=== PATIENT | female | born 1960 | race Two or more races ===

== ENCOUNTER 2024-06-12 03:33 | Inpatient (IN) | payer MEDICAID, SELFPAY ==
[2024-06-12] VITALS (14 sets, daily range): BP systolic 143–186; BP diastolic 58–99; PULSE 71–107; RESP 14–29; TEMP 36.1–37.1; O2SAT 90–100; BMI 74.2
--- NOTE | ~2024-06-12 | CT_ITS ---
CLINICAL HISTORY: intermittent L arm numbness, L mouth drooping CT angiography head and neck with contrast. 3D Postprocessing. Comparison: None Findings: Aortic arch and cervical great vessels are patent. Intracranial arteries are patent. No aneurysm, dissection, or occlusion. No abnormal intracranial enhancement. The visualized thyroid gland is unremarkable. No cervical mass or fluid collection. Lung apices clear. No acute fracture. IMPRESSION: Patent head and neck CTA. This document has been electronically signed by: Orestes Rob MD on 06/12/2024 05:58:57
--- NOTE | 2024-06-12 03:54 | ECG_ITS ---
Test Reason : STROKE Blood Pressure : */* mmHG Vent. Rate : 93 BPM Atrial Rate : 93 BPM P-R Int : 142 ms QRS Dur : 80 ms QT Int : 324 ms P-R-T Axes : 58 54 46 degrees QTcB Int : 402 ms Normal sinus rhythm Possible Left atrial enlargement Borderline ECG No previous ECGs available Referred By: Lesley Conner Electronically Signed By: SARA ARCOS MD
--- NOTE | 2024-06-12 03:55 | ED_ITS ---
HPI - Neuro Symptoms/Deficit General Chief Complaint: Weakness Stated Complaint: stroke Time Seen by Provider: 06/12/24 03:36 Source: patient, family and EMS Mode of arrival: EMS Limitations: other (Poor historian) History of Present Illness ED Provider: Dr. Lesley Conner HPI Narrative: Patient comes to the emergency room complaining of left arm numbness and tingling. Patient states she noticed that she had numbness and tingling and a bit of weakness on the left arm approximately 11 hours ago. Patient states it lasted for about 30 minutes and then it self-resolved. Again, a proximally 6 hours ago at 22:00, patient noted that she had numbness tingling in the left arm. Patient states it is not so much weakness it is just the uncomfortable sensation that she can not shake off. Patient states it has been going on 6 hours now with the same symptoms. According to the patient, approximately 2 hours ago she called her daughter and explain to her that she was having numbness tingling on the left side of her arm. Patient's daughter went to see her mother who noted that patient had mild left-sided drooping. Patient did not notice it. By the time they arrived to the hospital, patient no longer having mouth drooping, has normal speech, complaining of ongoing numbness tingling of the left arm. Related Data Allergies Allergy/AdvReac Type Severity Reaction Status Date / Time No Known Allergies Allergy Verified 06/12/24 03:57 Review of Systems 2 Review of Systems: Constitutional : No Weight loss, No Fever, No Chills, No Night Sweats, No Fatigue, No Malaise ENT/Mouth : No Hearing loss, No Ear Pain, No Nasal Congestion, No Sinus Pain, No Hoarseness, No sore throat, No Rhinorrhea, No Swallowing Difficulty Eyes: No Eye Pain, No Swelling, No Redness, No Foreign Body, No Discharge, No Vision Changes Cardiovascular : No Chest Pain, No SOB, No Dyspnea on Exertion, No Orthopnea, No Edema, No Palpitations Respiratory : No Cough, No Sputum, No Wheezing, No Smoke Exposure, No Dyspnea Gastrointestinal : No Nausea, No Vomiting, No Diarrhea, No Constipation, No abdominal Pain, No Hematochezia, No Melena Genitourinary : no irregular bleeding, No Dysuria, No Urinary Frequency, No Hematuria, No Urinary Incontinence, No Urgency, No Flank Pain, No Urinary Flow Changes, No Hesitancy Musculoskeletal : No joint pain, No Myalgias, No Joint Swelling Skin : No Skin Lesions, No rash Neuro : Complaining of intermittent mild weakness of the left arm, ongoing paresthesias of the left arm for at least 6 hours, resolved left-sided mouth droop Psych : No Anxiety/Panic, No Depression, No SI/HI/AH/VH, No Social Issues, Heme/Lymph: No Bruising, No Bleeding,No Lymphadenopathy Endocrine : No Polyuria, No Polydipsia, No Temperature Intolerance [facility] Past Medical History Medical History (Updated 06/12/24 @ 06:55 by Lesley Conner MD) Diabetes Hyperlipidemia Hypertension Social History Social History Smoked in Last 30 Days: No Use of substances other than those prescribed or required for medical reasons: No Advance Directives: No Advance Directives Information Provided: Yes Do you have a plan to hurt others: No Plan Patient : No Physical Exam 2 Vital Signs: Vital Signs: Last Vital Signs Temp 98.8 F 06/12/24 06:23 Pulse 104 H 06/12/24 06:23 Resp 29 H 06/12/24 06:23 BP 169/74 H 06/12/24 06:23 Pulse Ox 97 06/12/24 06:23 O2 Del Method Nasal Cannula 06/12/24 06:23 O2 Flow Rate 2 06/12/24 06:23 Oxygen Flow Rate 2 06/12/24 03:38 BMI result Body Mass Index 74.2 Const: Other: Appearance: Alert. Oriented X3. No acute distress. Eyes: Pupils equal, round and reactive to light. ENT: Pharynx normal. Neck: Normal inspection. Neck supple. No lymph nodes noted. No crepitus CVS: Normal heart rate and rhythm. Pulses normal. Normal S1 and S2 Respiratory: No respiratory distress. Breath sounds normal. No Wheezing. No rales Abdomen: Soft and nontender. No rigidity. No distention. Skin: Skin warm and dry. Normal skin color. Normal skin turgor. Extremities: No lower extremity edema. No Lacerations. No Rash Neuro: Oriented X 3. No motor deficit. No sensory deficit. Moving all extremities. No slurred speech. CN 2 through 12 grossly intact Psych: calm, cooperative, very anxious Course Course Course Narrative: Patient receiving Ativan, full-dose aspirin All of patient's labs and imaging pending. On arrival, patient's NIH score 0. Patient is still feeling paresthesias in the left arm. Patient is outside of the window of treatment is TNK would be necessary. However, patient's NIH score is 0. CTA of the head and neck pending Medications Administered Discontinued Medications Generic Name Dose Route Start Last Admin Trade Name Lisa PRN Reason Stop Dose Admin Aspirin 325 mg 06/12/24 03:53 06/12/24 04:07 Aspirin Enteric Coated 325 Mg Tablet. PO 06/12/24 03:54 325 mg ONCE ONE Administration Iohexol 70 ml 06/12/24 05:01 06/12/24 05:01 Iohexol 350 Mg/Ml 100 Ml Infus..Btl IV 06/12/24 05:02 70 ml ONCE ONE Administration Lorazepam 2 mg 06/12/24 03:53 06/12/24 04:07 Lorazepam 2 Mg/Ml Vial IVPUSH 06/12/24 03:54 2 mg ONCE ONE Administration Medical Decision Making Medical Decision Making MDM Narrative: My interpretation of labs: Normal hematology, normal chemistry, troponin negative CTA: Patent head and neck CTA Patient to be admitted by the medicine team Patient's NIH score remains at 0 CTA of the neck does not show any acute abnormality. I discussed the patient with Dr. Morales from the Medicine team, patient being admitted. Differential Diagnosis Differential Diagnoses: The differential diagnosis associated with the presentation includes (TIA, CVA, paresthesias) Admission/Observation Consideration of admission/observation: Escalation of care including admission/observation considered Consult Healthcare Provider Management of the patient was discussed with: Hospitalist Lab Data [facility] Lab Attestation statement: I reviewed the patient's lab results. 06/12/24 04:11 06/12/24 04:11 Labs: Lab Results 06/12/24 06/12/24 Range/Units 03:49 04:11 WBC 10.8 (4.8-10.8) X10*3/uL RBC 4.80 (4.20-5.50) X10*6/uL Hgb 13.8 (12.0-16.0) g/dl Hct 42.8 (37.0-47.0) % MCV 89.2 (80.0-98.0) fL MCH 28.8 (27.0-33.0) pg MCHC 32.2 (31.0-35.0) g/dl RDW 15.7 (11.0-16.0) % Plt Count 248 (160-400) X10*3/uL MPV 10.7 (9.4-12.3) fL Immature Gran % (Auto) 0.4 (0.0-0.4) % Neut % (Auto) 91.4 H (45-73) % Lymph % (Auto) 3.1 L (20-40) % [place] % (Auto) 4.5 (2-11) % Eos % (Auto) 0.5 (0-4) % Baso % (Auto) 0.1 (0-2) % Lymph # (Auto) 0.3 L (1.2-4.9) X10*3/uL [place] # (Auto) 0.5 (0.1-1.2) X10*3/uL Eos # (Auto) 0.1 (0.0-0.4) X10*3/uL Baso # (Auto) 0.0 (0.0-0.2) X10*3/uL Abs Immat Gran (auto) 0.04 H (0.00-0.03) X10*3/uL Absolute Neuts (auto) 9.9 H (2.0-8.3) x10*3/uL Absolute Nucleated RBC 0.000 (0.0-0.012) X10*3/uL Nucleated RBC % (auto) 0.0 (0.0-0.2) /100WBC Smear Tech's Comments VERIFIED PT 12.2 (10.9-12.4) SEC Whole Blood PT 12.7 (11.1-13.5) sec INR 1.0 (0.9-1.1) Whole Blood INR 1.1 (0.9-1.1) Sodium 139 (135-145) mmol/L Potassium 4.9 (3.3-5.1) mmol/L Chloride 101 (96-108) mmol/L Carbon Dioxide 26 (22-29) mmol/L Anion Gap 17 (12-20) BUN 41 H (9-16) mg/dL Creatinine 1.38 (0.5-1.4) mg/dL Estim Creat Clear Calc 71.7 Estimated GFR 39 POC Glucose 166 H (60-115) mg/dL Random Glucose 171 H (60-115) mg/dL Calcium 9.5 (8.4-10.2) mg/dL Magnesium 1.8 (1.6-2.6) mg/dL Total Bilirubin 0.7 (0.0-1.0) mg/dL Direct Bilirubin 0.3 (0.0-0.5) mg/dL AST 22 (5-31) U/L ALT 15 (0-31) U/L Alkaline Phosphatase 70 (39-117) U/L Troponin I High Sens < 2.7 (<3.5-17.0) ng/L Total Protein 7.7 (6.5-8.0) g/dL Albumin 3.7 (3.5-5.0) g/dL Independent Interpretation I performed an independent interpretation of an: CT Scan Radiology Impression Discussion of test interpretation with radiology: I have reviewed the radiologist's reading. Radiologist Impression: CLINICAL HISTORY: intermittent L arm numbness, L mouth drooping CT angiography head and neck with contrast. 3D Postprocessing. Comparison: None Findings: Aortic arch and cervical great vessels are patent. Intracranial arteries are patent. No aneurysm, dissection, or occlusion. No abnormal intracranial enhancement. The visualized thyroid gland is unremarkable. No cervical mass or fluid collection. Lung apices clear. No acute fracture. IMPRESSION: Patent head and neck CTA. Independent Historian Clinical information obtained from an independent historian. History obtained from or confirmed by: Other (Patient's daughter) NIH Stroke Scale Internal: Initial- Upon Arrival Level of Consciousness: Alert Level of Consciousness Questions: Answers both questions correctly Level of Consciousness Commands: Performs both tasks correctly Best Gaze: Normal Visual: No visual loss Facial Palsy: Normal Motor Arm (Right): No drift Motor Arm (Left): No drift Motor Leg (Right): No drift Motor Leg (Left): No drift Limb Ataxia: Absent Sensory: Normal Best Language: No aphasia Dysarthia: Normal Extinction and Inattention: No abnormality Score: 0 Critical Care Time Critical Care Time Critical Care Time: Yes Total Critical Care Time: 60 Attestation: I have personally provided critical care time. Time includes review of lab data, radiology results, discussion with consultants, and monitoring for potential decompensation. Intervention performed as documented. Discharge Plan Discharge Clinical Impression: Brain TIA Patient Disposition: Admitted As Inpatient Print Language: Citizen [place]
[2024-06-12] MEDS: Aspirin Enteric Coated 325 MG TABLET.DR PO (04:07)
[2024-06-12] MEDS: LORazepam 2 MG/ML VIAL IVPUSH (04:07)
[2024-06-12 04:16] LABS: Basophils Percent Auto 0.1 % (0-2); Eosinophils Absolute Auto 0.1 X10*3/uL (0.0-0.4); Eosinophils Percent Auto 0.5 % (0-4); Hematocrit 42.8 % (37.0-47.0); Hemoglobin 13.8 g/dl (12.0-16.0); Imm Gran Abs Auto 0.04 X10*3/uL (0.00-0.03); Imm Gran Pct Auto 0.4 % (0.0-0.4); Lymphocytes Absolute Auto 0.3 X10*3/uL (1.2-4.9); Lymphocytes Percent Auto 3.1 % (20-40); MANUAL DIFF FLAG SCAN; Mean Corpuscular HGB Conc 32.2 g/dl (31.0-35.0); Mean Corpuscular Hemoglobin 28.8 pg (27.0-33.0); Mean Corpuscular Volume 89.2 fL (80.0-98.0); Mean Platelet Volume 10.7 fL (9.4-12.3); Monocytes Absolute Auto 0.5 X10*3/uL (0.1-1.2); Monocytes Percent Auto 4.5 % (2-11); Neutrophils Absolute Auto 9.9 x10*3/uL (2.0-8.3); Neutrophils Percent Auto 91.4 % (45-73); Platelet Count 248 X10*3/uL (160-400); Red Cell Distribution Width 15.7 % (11.0-16.0); SCAN SMEAR FLAG 1; White Blood Count 10.8 X10*3/uL (4.8-10.8)
[2024-06-12 04:18] LABS: Prothrombin Time Whole Bld POC 12.7 sec (11.1-13.5); ~PT, ~INR - Anti Coag Clinic 1.1 (0.9-1.1)
[2024-06-12 04:19] LABS: Glucose, Whole Blood 166 mg/dL (60-115)
[2024-06-12 04:21] LABS: Prothrombin Time 12.2 SEC (10.9-12.4)
[2024-06-12 04:34] LABS: Alanine Aminotransferase 15 U/L (0-31); Albumin Level 3.7 g/dL (3.5-5.0); Alkaline Phosphatase 70 U/L (39-117); Anion Gap 17 (12-20); Aspartate Amino Transferase 22 U/L (5-31); Bilirubin Direct 0.3 mg/dL (0.0-0.5); Bilirubin Total 0.7 mg/dL (0.0-1.0); Blood Urea Nitrogen 41 mg/dL (9-16); Calcium 9.5 mg/dL (8.4-10.2); Carbon Dioxide 26 mmol/L (22-29); Chloride 101 mmol/L (96-108); Creatinine Clr Calc Pharmacy 71.7; Estimated Glomerular Filt Rate 39; Glucose Random 171 mg/dL (60-115); Magnesium 1.8 mg/dL (1.6-2.6); Potassium 4.9 mmol/L (3.3-5.1); Sodium 139 mmol/L (135-145); Total Protein 7.7 g/dL (6.5-8.0)
[2024-06-12 04:39] LABS: Troponin-I High Sensitivity < 2.7 ng/L (<3.5-17.0)
[2024-06-12 04:50] LABS: SLIDE REVIEW VERIFIED
[2024-06-12] MEDS: iohexoL 350 MG/ML 100 ML INFUS..BTL 70 ML IV (05:01)
--- NOTE | 2024-06-12 07:05 | PC.NURSE ---
2:1 assist to get out of bed. pt unable to ambulate independently or w/ device d/t increased weakness. wheelchair utilized. pt placed on 2L via NC (baseline) during transport to the restroom. pt then had 1 episode of nonbloody watery diarrhea. pt then assisted back into bed. pt turned/repositioned to comfort. transport services messaged so pt can be transitioned into bariatric bed to promote comfort. will transition pt when able. otherwise pt resting in no apparent distress. neuros intact. vss and up to date aside from being sinus tachycardic on the monitor. no sob/wob noted. family bedside for support. respirations even/unlabored. plan of care ongoing. call cassidy placed within reach.
--- NOTE | 2024-06-12 07:29 | PC.NURSE ---
MRI form filled out/faxed/placed in pt's chart.
--- NOTE | 2024-06-12 08:08 | PC.NURSE ---
pt transitioned to bariatric bed to promote comfort. pt turned/repositioned to comfort. purewick now in place. pt requesting CPAP machine d/t hx of CORNELIA/wanting to fall asleep. RT notified/aware. pt remains in upright position on 3L via NC while pending CPAP placement. no sob/wob noted. respirations even/unlabored.
--- NOTE | 2024-06-12 08:45 | PC.NURSE ---
pt placed on CPAP via RT at this time.
--- NOTE | 2024-06-12 08:56 | PC.NURSE ---
pt requesting do be taken off of cpap at this time. pt placed back on 3L via NC. no sob/wob noted. respirations even/unlabored. family/pt speaking w/ hospitalist in regards to plan of care moving forward at this time. plan of care ongoing.
--- NOTE | 2024-06-12 09:15 | PM.IMHP ---
History of Present Illness Date of Service: 06/12/24 Chief Complaint: arm heaviness/facial droop 63 yo F with a PMH of DM, HTN, CORNELIA recently started on CPAP, HLD, likely obesity hypoventilation syndrome, chronic resp failure on hypoxia on supplemental O2 who presents [place] [facility] with acute neurological complaints. The history is obtained with the help of patient's daughters who are beside. Apparently, the patient first complained of L arm heaviness on Wednesday (2 days prior to admission) but felt this was secondary to sleeping on arm. This apparently subsided, but the next day returned. Per daughter, on the morning of admission, around 230AM, the pt complained of similar symptoms and at the time there was abnormal speech and drooping of the face reproted. Hence, they arrived to the ED. In the ED, the patient was felt to be outside the TNK window. A CTA head/neck did not revealed any LVO. She was given aspirin and now admission has been requested. The patient is seen and examined in the ED around 9AM. She reports leave arm heaviness. Daughters report her speech sounds slurred. Of note, pt was recently admitted to [facility] for respiratory failure. She was newly started on CPAP/O2. Review of Systems Review of Systems: Negative except HPI/interval history. [facility]LY [facility], [facility] Medical History (Updated 06/13/24 @ 08:48 by Ebonie Aponte MD) Diabetes Hyperlipidemia Hypertension Social History Household Members: Children Housing: Apartment Do you presently have visiting nurse or other home services: Yes Patient Tobacco Use Status: Never used Tobacco Smoked in Last 30 Days: No Use of substances other than those prescribed or required for medical reasons: No Have you been hit, kicked, punched, or otherwise hurt by someone within the past year? If so, by whom?: No Do you feel safe in your current relationship?: No Current Relationship Is there a partner from a previous relationship who is making you feel unsafe now?: No Advance Directives: No Advance Directives Information Provided: Yes Do you have a plan to hurt others: No Plan Recently lost weight without trying: No How much weight loss: Not applicable Eating poorly because of decreased appetite: No Nutrition screen score: 0 Nutrition Risks: No Nutritional Risk Patient : No : No Poor oral hygiene: No service: No Meds Allergies Allergy/AdvReac Type Severity Reaction Status Date / Time No Known Allergies Allergy Verified 06/12/24 03:57 Active Medications: Current Medications Acetaminophen (Acetaminophen 325 Mg Tablet) 650 mg PO Q6H PRN PRN Reason: Pain, Mild 1-3,fever,headache Calcium Carbonate (Calcium Carbonate 750 Mg Tab.Chew) 750 mg PO Q4H PRN PRN Reason: Heartburn Enoxaparin Sodium (Enoxaparin Sodium 40 Mg/0.4 Ml Syringe) 40 mg SUBCUT Q12H [facility] Magnesium Hydroxide (Milk Of Magnesia 30 Ml Oral.Susp) 30 ml PO DAILY PRN PRN Reason: Constipation Melatonin (Melatonin 3 Mg Tablet) 6 mg PO BEDTIME PRN PRN Reason: Insomnia Sodium Chloride (0.9 % Sodium Chloride Flush 3 Ml Syringe) 3 ml IVFLUSH QSHIFT [facility] Home Medications ?Medication ?Instructions ?Recorded ?Confirmed ?Last Taken ?Type albuterol sulfate 90 mcg/actuation 2 puff inhalation QID PRN Wheezing 06/12/24 06/12/24 Unknown History aerosol inhaler (Ventolin HFA) aspirin 81 mg chewable tablet 81 mg PO DAILY 06/12/24 06/12/24 Unknown History bupropion HCl 150 mg tablet,12 hr 150 mg PO BID 06/12/24 06/12/24 Unknown History sustained-release escitalopram oxalate 10 mg tablet 10 mg PO BEDTIME 06/12/24 06/12/24 Unknown History fluticasone propionate 220 1 puff inhalation BID 06/12/24 06/12/24 Unknown History mcg/actuation HFA aerosol inhaler losartan 100 mg tablet 100 mg PO DAILY 06/12/24 06/12/24 Unknown History lovastatin 40 mg tablet 40 mg PO BEDTIME 06/12/24 06/12/24 Unknown History metformin 500 mg tablet 500 mg PO DAILY 06/12/24 06/12/24 Unknown History multivitamin 1 tab PO DAILY 06/12/24 06/12/24 Unknown History nifedipine 60 mg tablet,extended 60 mg PO DAILY 06/12/24 06/12/24 Unknown History release semaglutide 2 mg/dose (8 mg/3 mL) 2 mg subcut QWEEK 06/12/24 06/12/24 Unknown History subcutaneous pen injector (Ozempic) triamterene 37.5 1 tab PO DAILY 06/12/24 06/12/24 Unknown History mg-hydrochlorothiazide 25 mg tablet Physical Exam Vital Signs and Narrative: Vital Signs: Last Vital Signs Temp 98.5 F 06/12/24 08:07 Pulse 107 H 06/12/24 08:54 Resp 22 H 06/12/24 08:54 BP 149/83 H 06/12/24 08:54 Pulse Ox 96 06/12/24 08:54 O2 Del Method Nasal Cannula 06/12/24 08:54 O2 Flow Rate 3 06/12/24 08:54 Oxygen Flow Rate 2 06/12/24 03:38 BMI result Body Mass Index 74.2 Const: Other: Constitutional - Awake and Alert, No apparent distress Eyes - PERRLA, EOMI Cardiovascular - S1S2, RRR, No edema Respiratory - dim sounds at bases Gastrointestinal - NT / ND; +BS; No rebound or guarding - No CVA tenderness Extremities - no calf tenderness bilaterally, no swelling Musculoskeletal - Normal inspection, normal ROM Skin - Warm/Dry Neurological - Alert & oriented x3, question mild facial droop and question mild pronator drift; LUE pharmaceutical detailer strength decreased compared to right Psychological - Appropriate affect Results Labs 06/13/24 06:50 06/13/24 06:50 Labs: Laboratory Results - last 24 hr 06/12/24 06/12/24 03:49 04:11 MCV 89.2 MCH 28.8 MCHC 32.2 RDW 15.7 Plt Count 248 MPV 10.7 Immature Gran % (Auto) 0.4 Neut % (Auto) 91.4 H Lymph % (Auto) 3.1 L Day % (Auto) 4.5 Eos % (Auto) 0.5 Baso % (Auto) 0.1 Lymph # (Auto) 0.3 L Day # (Auto) 0.5 Eos # (Auto) 0.1 Baso # (Auto) 0.0 Abs Immat Gran (auto) 0.04 H Absolute Neuts (auto) 9.9 H Absolute Nucleated RBC 0.000 Nucleated RBC % (auto) 0.0 Smear Tech's Comments VERIFIED PT 12.2 Whole Blood PT 12.7 INR 1.0 Whole Blood INR 1.1 Anion Gap 17 Estim Creat Clear Calc 71.7 Estimated GFR 39 POC Glucose 166 H Random Glucose 171 H Calcium 9.5 Magnesium 1.8 Total Bilirubin 0.7 Direct Bilirubin 0.3 AST 22 ALT 15 Alkaline Phosphatase 70 Troponin I High Sens < 2.7 Total Protein 7.7 Albumin 3.7 Assessment and Plan (1) Stroke: Status: Acute Plan 63 yo F with multiple risk factors for vascular disease who presents with a 1 day history of intermittent neurological symptoms suspicious for TIA vs acute CVA. She will be admitted for further work up and treatment. 1. Suspected acute CVA vs TIA CTA head/neck negative. On exam, question subtle lateralizing signs continue telemonitor, recent echo at [facility] --suboptimal quality but with concentric LVH and normal LVEF check lipids, HbA1C neurology consult neuro checks passed RN swallow eval with get PT/OT involved 2. Chronic resp. failure with hypoxia / CORNELIA continue baseline supplemental O2, CO2 retainer protocol ordered continue with CPAP 3. HTN allow permissive HTN, will discuss goals with neurology 4. DM hold oral meds use POC + sliding scale 5. HLD high intensity statin 6. Mood continue baseline meds Full Code DVT pptx - lovenox BID Pt with suspected stroke requiring telemonitoring, neuro-checks, neurolog evaluation + PT/OT therefore expected to require at least 2 midnights in the hospital for management and treatment. Hence, she will be admitted as inpt. Quality Stroke Does the patient have a stroke diagnosis?: Yes Reason for No Anti-thrombotic by Day Two: N/A - Med Ordered VTE Prior VTE?: No VTE Risk Level:: Medical - moderate - high VTE Device Contraindication: N/A - Device Ordered VTE Drug Contraindication: N/A - Med Ordered
[2024-06-12 09:43] LABS: Estimated Average Glucose 131 mg/dL; Hemoglobin A1C 161.8841 umol/L; Hemoglobin A1c % 6.2 % (<6.0); Total Hemoglobin (HGBA1C) 3639.8951 umol/L
[2024-06-12] MEDS: Enoxaparin Sodium 40 MG/0.4 ML SYRINGE SUBCUT ×2 (09:46→21:18)
[2024-06-12 09:47] LABS: Cholesterol 183 mg/dL (<200); HDL Cholesterol 61 mg/dL (>40); LDL Cholesterol Calculated 103 mg/dL (<100); Triglycerides 95 mg/dL (<150)
[2024-06-12 09:50] LABS: Appearance Urine Cloudy; Color Urine Yellow; Glucose Urine UA Negative (Negative); Leukocyte Esterase Urine Large (3+) (Negative); Nitrite Urine Negative (Negative); PH 5.5 (5.0-9.0); Specific Gravity - Urine >= 1.030 (1.005-1.025); UMIC TRIGGER UACC YES; Urine Blood Small (1+) (Negative); Urine Ketones Negative (Negative); Urine Protein Trace mg/dL (Neg-Trace)
[2024-06-12 09:52] LABS: Bacteria Urine 4+ (None Seen); UACC Culture Trigger YES; WBC Urine >50 /HPF (0-5)
--- NOTE | 2024-06-12 11:01 | PC.NURSE ---
PT eval being completed at this time.
[2024-06-12] MEDS: Atorvastatin Calcium 80 MG TABLET PO (11:11)
--- NOTE | 2024-06-12 12:28 | PC.NURSE ---
pt being transported to MRI at this time.
--- NOTE | 2024-06-12 12:36 | PC.RT ---
Family brought in pt own CPAP machine. Family will assist pt in application of CPAP tonight. Resmed pulled from room.
--- NOTE | 2024-06-12 13:09 | MHC.STROKE ---
Met with MANAGER SUMMER and family. Stroke Education provided. Stroke protocol, admission process, risk factors including diet, medications, and activity discussed. All questions answered. Stroke pamphlet given and reviewed. Pt at MRI. Will continue to assist as needed.
[2024-06-12 13:53] LABS: Glucose, Whole Blood 123 mg/dL (60-115)
[2024-06-12 17:29] LABS: Glucose, Whole Blood 120 mg/dL (60-115)
[2024-06-12] MEDS: Acetaminophen 325 MG TABLET 650 MG PO (18:29)
[2024-06-12 19:57] LABS: Glucose, Whole Blood 119 mg/dL (60-115)
[2024-06-12 20:25] LABS: Glucose, Whole Blood 114 mg/dL (60-115)
[2024-06-12] MEDS: 0.9 % Sodium Chloride Flush 3 ML SYRINGE IVFLUSH (21:22)
[2024-06-12 21:52] LABS: Venous Blood Gas Refer to POC result
[2024-06-12 21:52] LABS: VBG Base Excess 7.5 mmol/L; VBG HCO3 32 mmol/L (22-26); VBG pCO2 47 mmHg; VBG pH 7.44 (7.32-7.43); VBG pO2 85 mmHg
[2024-06-13] VITALS (7 sets, daily range): BP systolic 135–177; BP diastolic 61–93; PULSE 69–96; RESP 16–20; TEMP 36.1–36.8; O2SAT 90–96
[2024-06-13 07:15] LABS: Glucose, Whole Blood 132 mg/dL (60-115)
[2024-06-13 07:34] LABS: Hematocrit 44.1 % (37.0-47.0); Mean Corpuscular HGB Conc 31.7 g/dl (31.0-35.0); Mean Corpuscular Hemoglobin 28.7 pg (27.0-33.0); Mean Corpuscular Volume 90.6 fL (80.0-98.0); Mean Platelet Volume 11.2 fL (9.4-12.3); Platelet Count 226 X10*3/uL (160-400); Red Blood Count 4.87 X10*6/uL (4.20-5.50); Red Cell Distribution Width 15.8 % (11.0-16.0); White Blood Count 4.8 X10*3/uL (4.8-10.8)
--- NOTE | 2024-06-13 07:44 | PHA.MEDREC ---
Pharmacy Consult ? Medication Reconciliation Pharmacy has completed the medication reconciliation, list was utilized for patient and verified by Dimitrios Balderrama RPh.
[2024-06-13 07:49] LABS: Alanine Aminotransferase 26 U/L (0-31); Albumin Level 3.6 g/dL (3.5-5.0); Alkaline Phosphatase 56 U/L (39-117); Aspartate Amino Transferase 57 U/L (5-31); Bilirubin Total 0.5 mg/dL (0.0-1.0); Blood Urea Nitrogen 39 mg/dL (9-16); Calcium 8.7 mg/dL (8.4-10.2); Creatinine Clr Calc Pharmacy 71.7; Estimated Glomerular Filt Rate 39; Glucose Random 136 mg/dL (60-115); Total Protein 7.4 g/dL (6.5-8.0)
[2024-06-13] MEDS: buPROPion HCl XL 150 MG TAB.ER.24H 300 MG PO (07:58)
[2024-06-13] MEDS: Enoxaparin Sodium 40 MG/0.4 ML SYRINGE SUBCUT ×2 (07:58→19:59)
[2024-06-13] MEDS: Multivitamin TABLET 1 TAB PO (07:58)
[2024-06-13] MEDS: Atorvastatin Calcium 80 MG TABLET PO (07:58)
[2024-06-13] MEDS: 0.9 % Sodium Chloride Flush 3 ML SYRINGE IVFLUSH ×3 (07:59→20:00)
[2024-06-13 08:00] LABS: Anion Gap 15 (12-20); Carbon Dioxide 26 mmol/L (22-29); Chloride 101 mmol/L (96-108); Potassium 3.8 mmol/L (3.3-5.1); Sodium 138 mmol/L (135-145)
--- NOTE | 2024-06-13 08:45 | PM.NEUROCN ---
History of Present Illness Data of Consult Service Date: 06/13/24 Primary Care Provider: Marie Rossi NP HPI Reason for consult: Left-sided numbness 63 years old woman with morbid obesity and uncontrolled hypertension came to hospital with left-sided numbness that started probably a day or 2 before she came to hospital. Her left hand and arm felt numb and when she tried to use it it felt weak. She looked at her face and left side of the face was flat. There was also some left leg weakness. There was no associated headache nausea vomiting or any visual symptom. There was no neck pain. Review of Systems Review of Systems: No recent cold or flu-like illness PMFSH Past Medical History Medical History (Updated 06/13/24 @ 08:48 by Ebonie Aponte MD) Diabetes Hyperlipidemia Hypertension Social History Social History Household Members: Children Housing: Apartment Do you presently have visiting nurse or other home services: Yes Patient Tobacco Use Status: Never used Tobacco Smoked in Last 30 Days: No Use of substances other than those prescribed or required for medical reasons: No Have you been hit, kicked, punched, or otherwise hurt by someone within the past year? If so, by whom?: No Do you feel safe in your current relationship?: No Current Relationship Is there a partner from a previous relationship who is making you feel unsafe now?: No Advance Directives: No Advance Directives Information Provided: Yes Do you have a plan to hurt others: No Plan Recently lost weight without trying: No How much weight loss: Not applicable Eating poorly because of decreased appetite: No Nutrition screen score: 0 Nutrition Risks: No Nutritional Risk Patient : No : No Poor oral hygiene: No Meds Allergies Allergy/AdvReac Type Severity Reaction Status Date / Time No Known Allergies Allergy Verified 06/12/24 03:57 Active Medications: Current Medications Acetaminophen (Acetaminophen 325 Mg Tablet) 650 mg PO Q6H PRN PRN Reason: Pain, Mild 1-3,fever,headache Last Admin: 06/12/24 18:29 Dose: 650 mg Albuterol Sulfate (Albuterol Sulfate 90 Mcg 8 Gm Inhaler) 2 puff INHALE QID PRN PRN Reason: Wheezing Aspirin (Aspirin 81 Mg Tab.Chew) 81 mg PO DAILY [facility] Atorvastatin Calcium (Atorvastatin Calcium 80 Mg Tablet) 80 mg PO DAILY [facility] Last Admin: 06/13/24 07:58 Dose: 80 mg Bupropion HCl (Bupropion Hcl Xl 150 Mg Tab.Er.24h) 300 mg PO DAILY [facility] Last Admin: 06/13/24 07:58 Dose: 300 mg Calcium Carbonate (Calcium Carbonate 750 Mg Tab.Chew) 750 mg PO Q4H PRN PRN Reason: Heartburn Enoxaparin Sodium (Enoxaparin Sodium 40 Mg/0.4 Ml Syringe) 40 mg SUBCUT Q12H [facility] Last Admin: 06/13/24 07:58 Dose: 40 mg Escitalopram Oxalate (Escitalopram Oxalate 10 Mg Tablet) 10 mg PO BEDTIME [facility] Last Admin: 06/12/24 21:21 Dose: Not Given Fluticasone Propionate (Fluticasone Propionate 250 Mcg Blst.W.Dev) 1 puff INHALE RBID [facility] Last Admin: 06/12/24 22:52 Dose: Not Given Magnesium Hydroxide (Milk Of Magnesia 30 Ml Oral.Susp) 30 ml PO DAILY PRN PRN Reason: Constipation Melatonin (Melatonin 3 Mg Tablet) 6 mg PO BEDTIME PRN PRN Reason: Insomnia Multivitamins/Vitamin C (Multivitamin Tablet) 1 tab PO DAILY [facility] Last Admin: 06/13/24 07:58 Dose: 1 tab Sodium Chloride (0.9 % Sodium Chloride Flush 3 Ml Syringe) 3 ml IVFLUSH QSHIFT [facility] Last Admin: 06/13/24 07:59 Dose: 3 ml Home Medications ?Medication ?Instructions ?Recorded ?Confirmed ?Last Taken ?Type albuterol sulfate 90 mcg/actuation 2 puff inhalation QID PRN Wheezing 06/12/24 06/12/24 Unknown History aerosol inhaler (Ventolin HFA) aspirin 81 mg chewable tablet 81 mg PO DAILY 06/12/24 06/12/24 Unknown History bupropion HCl 150 mg tablet,12 hr 150 mg PO BID 06/12/24 06/12/24 Unknown History sustained-release escitalopram oxalate 10 mg tablet 10 mg PO BEDTIME 06/12/24 06/12/24 Unknown History fluticasone propionate 220 1 puff inhalation BID 06/12/24 06/12/24 Unknown History mcg/actuation HFA aerosol inhaler losartan 100 mg tablet 100 mg PO DAILY 06/12/24 06/12/24 Unknown History lovastatin 40 mg tablet 40 mg PO BEDTIME 06/12/24 06/12/24 Unknown History metformin 500 mg tablet 500 mg PO DAILY 06/12/24 06/12/24 Unknown History multivitamin 1 tab PO DAILY 06/12/24 06/12/24 Unknown History nifedipine 60 mg tablet,extended 60 mg PO DAILY 06/12/24 06/12/24 Unknown History release semaglutide 2 mg/dose (8 mg/3 mL) 2 mg subcut QWEEK 06/12/24 06/12/24 Unknown History subcutaneous pen injector (Ozempic) triamterene 37.5 1 tab PO DAILY 06/12/24 06/12/24 Unknown History mg-hydrochlorothiazide 25 mg tablet Physical Exam Vital Signs: Vital Signs: Last Vital Signs Temp 97.0 F 06/13/24 07:21 Pulse 78 06/13/24 07:21 Resp 20 06/13/24 07:21 BP 135/63 06/13/24 07:21 Pulse Ox 94 06/13/24 07:21 O2 Del Method CPAP 06/13/24 07:21 O2 Flow Rate 2 06/12/24 17:48 Oxygen Flow Rate 2 06/12/24 03:38 BMI result Body Mass Index 74.2 Neuro: Other: She is alert and awake with normal spontaneity of speech fluency comprehension and affect. There is mild left-sided central type facial weakness. There was mild left pronator drift. Mild left leg weakness is noted. Deep tendon reflexes are absent with flexor plantars. There is no sensory or visual extinction. Extraocular muscles were intact. Visual spaulding are full. Speech is normal. Results Labs 06/13/24 06:50 06/13/24 06:50 Labs: Short CBC 06/13/24 Range/Units 06:50 WBC 4.8 (4.8-10.8) X10*3/uL Hgb 14.0 (12.0-16.0) g/dl Hct 44.1 (37.0-47.0) % Plt Count 226 (160-400) X10*3/uL BMP 06/13/24 06:50 Sodium 138 Potassium 3.8 D Chloride 101 Carbon Dioxide 26 BUN 39 H Creatinine 1.38 Calcium 8.7 D Liver Function 06/13/24 Range/Units 06:50 Total Bilirubin 0.5 (0.0-1.0) mg/dL AST 57 H (5-31) U/L ALT 26 (0-31) U/L Alkaline Phosphatase 56 (39-117) U/L Albumin 3.6 (3.5-5.0) g/dL Urine 06/12/24 Range/Units 09:38 Urine Color Yellow Urine Appearance Cloudy Urine pH 5.5 (5.0-9.0) Ur Specific [place] >= 1.030 H (1.005-1.025) Urine Protein Trace (Neg-Trace) mg/dL Urine Glucose (UA) Negative (Negative) mg/dL CTA of head and neck was reviewed. No vascular stenosis was noted but there is hypodensity in posterior limb of right internal capsule suggestive of subacute infarction. EKG revealed sinus rhythm. Assessment and Plan (1) Stroke: Qualifiers: CVA mechanism: thrombosis Precerebral and cerebral artery: unspecified cerebral artery Qualified Code(s): I63.30 - Cerebral infarction due to thrombosis of unspecified cerebral artery Status: Acute 63 years old woman with morbid obesity and uncontrolled hypertension has mild left hemiparesis. CTA of brain revealed subacute right posterior limb of internal capsular infarct. This type of infarcts are typically small to medium-size blood vessel type and atherothrombotic in nature related to uncontrolled hypertension and similar risk factors. Recommendation is patient education, control of all vascular risk factors, anti-platelet agent, statin, and blood pressure control. For couple of months, I recommend dual anti-platelet therapy with aspirin 81 mg daily and clopidogrel 75 mg daily. PT OT consultation is recommended Procedures Date of Service Date of Service: 06/13/24
[2024-06-13] MEDS: Aspirin 81 MG TAB.CHEW PO (09:15)
[2024-06-13 10:58] LABS: Glucose, Whole Blood 138 mg/dL (60-115)
--- NOTE | 2024-06-13 12:15 | P.PNIM_ITS ---
Subjective Subjective Date of Service: 06/13/24 Interval History: seen and examined this AM reports L arm sensation improved, but not normal denies other complaints daughters bedside Physical Exam 2 Vital Signs: Vital Signs: Last Vital Signs Temp 97.9 F 06/13/24 11:18 Pulse 76 06/13/24 11:18 Resp 20 06/13/24 11:18 BP 172/75 H 06/13/24 11:18 Pulse Ox 94 06/13/24 11:18 O2 Del Method CPAP 06/13/24 11:18 O2 Flow Rate 2 06/12/24 17:48 Oxygen Flow Rate 2 06/12/24 03:38 BMI result Body Mass Index 74.2 Const: Other: Constitutional - Awake and Alert, No apparent distress Eyes - PERRLA, EOMI Cardiovascular - S1S2, RRR, No edema Respiratory - dim sounds at bases Gastrointestinal - NT / ND; +BS; No rebound or guarding - No CVA tenderness Extremities - no calf tenderness bilaterally, no swelling Musculoskeletal - Normal inspection, normal ROM Skin - Warm/Dry Neurological - Alert & oriented x3, mild facial droop and mild pronator drift; LUE gaming director strength decreased compared to right - all appear improved compared to yesterday Psychological - Appropriate affect Objective Data Active Medications Acetaminophen (Acetaminophen 325 Mg Tablet) 650 mg PO Q6H PRN PRN Reason: Pain, Mild 1-3,fever,headache Last Admin: 06/12/24 18:29 Dose: 650 mg Documented By: RENATO Albuterol Sulfate (Albuterol Sulfate 90 Mcg 8 Gm Inhaler) 2 puff INHALE QID PRN PRN Reason: Wheezing Aspirin (Aspirin 81 Mg Tab.Chew) 81 mg PO DAILY [facility] Atorvastatin Calcium (Atorvastatin Calcium 80 Mg Tablet) 80 mg PO DAILY [facility] Last Admin: 06/13/24 07:58 Dose: 80 mg Documented By: CASTILLO Bupropion HCl (Bupropion Hcl Xl 150 Mg Tab.Er.24h) 300 mg PO DAILY [facility] Last Admin: 06/13/24 07:58 Dose: 300 mg Documented By: CASTILLO Calcium Carbonate (Calcium Carbonate 750 Mg Tab.Chew) 750 mg PO Q4H PRN PRN Reason: Heartburn Clopidogrel Bisulfate (Clopidogrel Bisulfate 75 Mg Tablet) 75 mg PO DAILY [facility] Enoxaparin Sodium (Enoxaparin Sodium 40 Mg/0.4 Ml Syringe) 40 mg SUBCUT Q12H [facility] Last Admin: 06/13/24 07:58 Dose: 40 mg Documented By: CASTILLO Escitalopram Oxalate (Escitalopram Oxalate 10 Mg Tablet) 10 mg PO BEDTIME [facility] Last Admin: 06/12/24 21:21 Dose: Not Given Documented By: NICKIE Non-Admin Reason: pt lethargic Fluticasone Propionate (Fluticasone Propionate 250 Mcg Blst.W.Dev) 1 puff INHALE RBID [facility] Last Admin: 06/12/24 22:52 Dose: Not Given Documented By: NICKIE Non-Admin Reason: pt lethargic Magnesium Hydroxide (Milk Of Magnesia 30 Ml Oral.Susp) 30 ml PO DAILY PRN PRN Reason: Constipation Melatonin (Melatonin 3 Mg Tablet) 6 mg PO BEDTIME PRN PRN Reason: Insomnia Multivitamins/Vitamin C (Multivitamin Tablet) 1 tab PO DAILY [facility] Last Admin: 06/13/24 07:58 Dose: 1 tab Documented By: CASTILLO Sodium Chloride (0.9 % Sodium Chloride Flush 3 Ml Syringe) 3 ml IVFLUSH QSHIFT [facility] Last Admin: 06/13/24 07:59 Dose: 3 ml Documented By: CASTILLO Labs 06/13/24 06:50 06/13/24 06:50 Labs: Laboratory Results - last 24 hr 06/12/24 06/12/24 06/12/24 13:42 17:11 19:53 MCV MCH MCHC RDW Plt Count MPV Absolute Nucleated RBC Nucleated RBC % (auto) VBG pH VBG pCO2 VBG pO2 VBG HCO3 VBG O2 Saturation VBG Base Excess Anion Gap Estim Creat Clear Calc Estimated GFR POC Glucose 123 H 120 H 119 H Random Glucose Calcium Total Bilirubin AST ALT Alkaline Phosphatase Total Protein Albumin 06/12/24 06/12/24 06/13/24 20:21 21:46 06:50 MCV 90.6 MCH 28.7 MCHC 31.7 RDW 15.8 Plt Count 226 MPV 11.2 Absolute Nucleated RBC 0.000 Nucleated RBC % (auto) 0.0 VBG pH 7.44 H VBG pCO2 47 VBG pO2 85 VBG HCO3 32 H VBG O2 Saturation 99.0 VBG Base Excess 7.5 Anion Gap 15 Estim Creat Clear Calc 71.7 Estimated GFR 39 POC Glucose 114 Random Glucose 136 H Calcium 8.7 D Total Bilirubin 0.5 AST 57 H ALT 26 Alkaline Phosphatase 56 Total Protein 7.4 Albumin 3.6 06/13/24 06/13/24 07:04 10:47 MCV MCH MCHC RDW Plt Count MPV Absolute Nucleated RBC Nucleated RBC % (auto) VBG pH VBG pCO2 VBG pO2 VBG HCO3 VBG O2 Saturation VBG Base Excess Anion Gap Estim Creat Clear Calc Estimated GFR POC Glucose 132 H 138 H Random Glucose Calcium Total Bilirubin AST ALT Alkaline Phosphatase Total Protein Albumin Microbiology Microbiology Results: Microbiology 06/12/24 Unknown Urine Culture - Final Urine clean catch - Clean Catch Midstream Assessment and Plan (1) Stroke: Status: Acute Plan 63 yo F with multiple risk factors for vascular disease who presents with a 1 day history of intermittent neurological symptoms suspicious for TIA vs acute CVA. She will be admitted for further work up and treatment. 1. Acute CVA CTA head/neck negative for LVO, no a. fib on monitor; recent echo at [facility] noted CTA reviewed by neurology and felt to have R posterior limb of interal capsule infarct neuro recs: control vascular risk factors (BP, cholesterol, DM) -- will start home BP meds this AM and suspected will require closer control as outpatient, change stating to high-intensity; neuro recs DAPT for a couple of months. PT/OT -- recs STR 2. Chronic resp. failure with hypoxia / CORNELIA continue baseline supplemental O2, CO2 retainer protocol ordered continue with CPAP 3. HTN restart bp meds 4. DM A1C is 6.2 - pre-DM range continue baseline meds upon d/c 5. HLD high intensity statin 6. Mood continue baseline meds Full Code DVT pptx - lovenox BID dispo: STR when bed available Quality Stroke Does the patient have a stroke diagnosis?: No VTE Prior VTE?: No VTE Risk Level:: Medical - moderate - high VTE Device Contraindication: N/A - Device Ordered VTE Drug Contraindication: N/A - Med Ordered
[2024-06-13] MEDS: Clopidogrel Bisulfate 75 MG TABLET PO (12:37)
[2024-06-13] MEDS: Losartan Potassium 50 MG TABLET 100 MG PO (12:37)
[2024-06-13] MEDS: NIFEdipine ER 60 MG TAB.ER.24 PO (12:37)
[2024-06-13] MEDS: Fluticasone Propionate 250 MCG BLST.W.DEV 1 PUFF INHALE ×2 (15:24→20:06)
--- NOTE | 2024-06-13 15:43 | MHC.CM.PN ---
EMR REVIEWED, PT W/ACUTE CVA, CM MET W/PT/[facility] DTR AND SISTER/HCP ON VIDEO CALL, DTR/SISTER ANSWERED MOST QUESTIONS PT WAS SLEEPING ON AND OFF W/CPAP, PT LIVES ALONE HOWEVER SINCE DC FROM [facility] FOR HEART FAILURE ON 06/01 PT HAS BEEN STAYING W/DTR ALEAH IN [place] AT [address] [facility]. PT WAS INDEP PRIOR TO STAY AND NOW USES A BARIATRIC WALKER, HAS A BARIATRIC WC FOR SHOPPING/DISTANCES,[address] [employer] [facility]/WK AND [facility] FOR SN/OT/PT. P.T. RECOMMENDING STR, PT'S FAMILY PREFERS [facility] HOWEVER ALSO REPORT THEY DON'T THINK PT WOULD BE ABLE TO PARTICIPATE IN THE 3HR REQ IN ACUTE REHAB, REF PLACED AND PT DENIED BY ALL 3 AR'S, SNF REF ALSO PLACED FOR STR AND [facility] ASKING QUESTIONS HOWEVER LATER DECLINED PT, CM STILL AWAITING BED OFFER HOWEVER PT WILL NEED BARIATRIC BED AND INSURANCE AUTH. PT VERIFIES PCP, HCP IS PT'S SISTER/PRIMARY CONTACT KAMINI, COPY REQUESTED FROM [facility] HOWEVER CM HAS NOT RECEIVED, PT IS A&O AND WILL NEED TO COMPLETE A NEW ONE IF [facility] DOES NOT HAVE ONE ON FILE.
[2024-06-13 16:50] LABS: Glucose, Whole Blood 108 mg/dL (60-115)
[2024-06-13] MEDS: Escitalopram Oxalate 10 MG TABLET PO (19:59)
[2024-06-13 20:40] LABS: Glucose, Whole Blood 142 mg/dL (60-115)
[2024-06-13] MEDS: diphenhydrAMINE HCL 25 MG CAPSULE PO (22:20)
[2024-06-13] MEDS: Melatonin 3 MG TABLET 6 MG PO (22:20)
--- NOTE | 2024-06-13 23:46 | PC.NURSE ---
Pt complained of redness and itchiness to chest caused by allergic reaction to tele stickers. MD notified. Benadryl ordered and given. Pt also complained of insomnia and requested melatonin. Given with good affect.
[2024-06-14] VITALS (7 sets, daily range): BP systolic 124–146; BP diastolic 58–76; PULSE 75–85; RESP 16–18; TEMP 36.3–36.8; O2SAT 92–98
[2024-06-14] MEDS: Acetaminophen 325 MG TABLET 650 MG PO (01:37)
--- NOTE | 2024-06-14 06:11 | PC.NURSE ---
Pt complained of bilateral feet tingling. States this is chronic and she usually uses pain relief lotions of them at home. MD Murphy notified. Pain relief cream ordered. Awaiting delivery from pharmacy.
[2024-06-14 07:31] LABS: Glucose, Whole Blood 108 mg/dL (60-115)
[2024-06-14] MEDS: Fluticasone Propionate 250 MCG BLST.W.DEV 1 PUFF INHALE ×2 (07:48→19:19)
[2024-06-14] MEDS: Losartan Potassium 50 MG TABLET 100 MG PO (08:45)
[2024-06-14] MEDS: Clopidogrel Bisulfate 75 MG TABLET PO (08:45)
[2024-06-14] MEDS: NIFEdipine ER 60 MG TAB.ER.24 PO (08:45)
[2024-06-14] MEDS: Atorvastatin Calcium 80 MG TABLET PO (08:45)
[2024-06-14] MEDS: Aspirin 81 MG TAB.CHEW PO (08:45)
[2024-06-14] MEDS: Multivitamin TABLET 1 TAB PO (08:45)
[2024-06-14] MEDS: buPROPion HCl XL 150 MG TAB.ER.24H 300 MG PO (08:48)
[2024-06-14] MEDS: 0.9 % Sodium Chloride Flush 3 ML SYRINGE IVFLUSH ×3 (08:49→20:35)
[2024-06-14] MEDS: Enoxaparin Sodium 40 MG/0.4 ML SYRINGE SUBCUT ×2 (08:49→20:33)
[2024-06-14] MEDS: Capsaicin 0.025% Cream 60 GM TUBE 1 APPL TOPICAL (08:50)
--- NOTE | 2024-06-14 09:06 | MHC.CM.PN ---
CM received a call from pt.'s dtr (Yaneth) to let me know that pt. would like to go home rather than STR, and her sister has a bedroom that she can use. She said that pt. will need a hospital bed and bariatric commode. She asked me to call the SW at [facility], the pt's PCP office. I spoke with [place], Laney, , she will order the bed and commode, she said it will not be there today, will take a few days, she is going to try to get it expedited. CM will touch base with her later today. [facility] updated.
[2024-06-14 11:20] LABS: Glucose, Whole Blood 102 mg/dL (60-115)
[2024-06-14 16:10] LABS: Glucose, Whole Blood 108 mg/dL (60-115)
--- NOTE | 2024-06-14 16:52 | P.PNIM_ITS ---
Subjective Subjective Date of Service: 06/14/24 Interval History: No acute issues overnight. Review of Systems Denies chest pain Denies shortness of breath Denies nausea vomiting diarrhea Denies fever chills Physical Exam 2 Vital Signs: Vital Signs: Last Vital Signs Temp 97.8 F 06/14/24 15:18 Pulse 81 06/14/24 15:18 Resp 17 06/14/24 15:18 BP 133/62 06/14/24 15:18 Pulse Ox 96 06/14/24 15:18 O2 Del Method Room Air 06/14/24 15:18 O2 Flow Rate 2 06/13/24 15:30 Oxygen Flow Rate 2 06/12/24 03:38 BMI result Body Mass Index 74.2 Const: Other: Awake alert no acute issues Resp: Other: Clear but diminished at bases Cardio: Other: No S4; positive S1-S2; no S3 murmurs rubs or gallops GI: Other: Obese; positive bowel sounds Extrem: Other: Positive edema bilaterally Objective Data Active Medications Acetaminophen (Acetaminophen 325 Mg Tablet) 650 mg PO Q6H PRN PRN Reason: Pain, Mild 1-3,fever,headache Last Admin: 06/14/24 01:37 Dose: 650 mg Documented By: W[place] Albuterol Sulfate (Albuterol Sulfate 90 Mcg 8 Gm Inhaler) 2 puff INHALE QID PRN PRN Reason: Wheezing Aspirin (Aspirin 81 Mg Tab.Chew) 81 mg PO DAILY [facility] Last Admin: 06/14/24 08:45 Dose: 81 mg Documented By: CASTILLO Atorvastatin Calcium (Atorvastatin Calcium 80 Mg Tablet) 80 mg PO DAILY [facility] Last Admin: 06/14/24 08:45 Dose: 80 mg Documented By: CASTILLO Bupropion HCl (Bupropion Hcl Xl 150 Mg Tab.Er.24h) 300 mg PO DAILY [facility] Last Admin: 06/14/24 08:48 Dose: 300 mg Documented By: CASTILLO Calcium Carbonate (Calcium Carbonate 750 Mg Tab.Chew) 750 mg PO Q4H PRN PRN Reason: Heartburn Clopidogrel Bisulfate (Clopidogrel Bisulfate 75 Mg Tablet) 75 mg PO DAILY [facility] Last Admin: 06/14/24 08:45 Dose: 75 mg Documented By: CASTILLO Enoxaparin Sodium (Enoxaparin Sodium 40 Mg/0.4 Ml Syringe) 40 mg SUBCUT Q12H [facility] Last Admin: 06/14/24 08:49 Dose: 40 mg Documented By: CASTILLO Escitalopram Oxalate (Escitalopram Oxalate 10 Mg Tablet) 10 mg PO BEDTIME [facility] Last Admin: 06/13/24 19:59 Dose: 10 mg Documented By: W[place] Fluticasone Propionate (Fluticasone Propionate 250 Mcg Blst.W.Dev) 1 puff INHALE RBID [facility] Last Admin: 06/14/24 07:48 Dose: 1 puff Documented By: SAROJ Losartan Potassium (Losartan Potassium 50 Mg Tablet) 100 mg PO DAILY [facility]; Protocol Last Admin: 06/14/24 08:45 Dose: 100 mg Documented By: CASTILLO Magnesium Hydroxide (Milk Of Magnesia 30 Ml Oral.Susp) 30 ml PO DAILY PRN PRN Reason: Constipation Melatonin (Melatonin 3 Mg Tablet) 6 mg PO BEDTIME PRN PRN Reason: Insomnia Last Admin: 06/13/24 22:20 Dose: 6 mg Documented By: W[place] Multivitamins/Vitamin C (Multivitamin Tablet) 1 tab PO DAILY [facility] Last Admin: 06/14/24 08:45 Dose: 1 tab Documented By: CASTILLO Nifedipine (Nifedipine Er 60 Mg Tab.Er.24) 60 mg PO DAILY [facility] Last Admin: 06/14/24 08:45 Dose: 60 mg Documented By: CASTILLO Sodium Chloride (0.9 % Sodium Chloride Flush 3 Ml Syringe) 3 ml IVFLUSH QSHIFT [facility] Last Admin: 06/14/24 08:49 Dose: 3 ml Documented By: CASTILLO Labs 06/13/24 06:50 06/13/24 06:50 Labs: Laboratory Results - last 24 hr 06/13/24 06/14/24 06/14/24 20:32 07:26 11:11 POC Glucose 142 H 108 102 06/14/24 16:02 POC Glucose 108 Assessment and Plan (1) Stroke: Status: Acute Plan 63 yo F with multiple risk factors for vascular disease who presents with a 1 day history of intermittent neurological symptoms suspicious for TIA vs acute CVA. She will be admitted for further work up and treatment. 1. Suspected acute CVA vs TIA -appreciate neuro input; Plavix/aspirin x3 months -PT recommends short-term rehab however family wishes patient home -awaiting bed and other supplies to facilitate discharge 2. Chronic resp. failure with hypoxia / CORNELIA -continue baseline supplemental O2, CO2 retainer protocol ordered -continue with CPAP 3. HTN -acceptable control on current therapies -adjust as indicated -no indication for permissive hypertension at this point 4. DM -acceptable control on current therapy -lispro correctional scale -adjust as indicated Full code lovenox BID Pt with suspected stroke requiring telemonitoring, neuro-checks, neurolog evaluation + PT/OT ; PT recommended short-term rehab however family wishes home with services. Await home set up prior to discharge Quality Stroke Does the patient have a stroke diagnosis?: Yes Reason for No Anti-thrombotic by Day Two: N/A - Med Ordered VTE Prior VTE?: No VTE Risk Level:: Medical - moderate - high VTE Device Contraindication: N/A - Device Ordered VTE Drug Contraindication: N/A - Med Ordered
[2024-06-14] MEDS: Melatonin 3 MG TABLET 6 MG PO (20:31)
[2024-06-14] MEDS: Escitalopram Oxalate 10 MG TABLET PO (20:31)
[2024-06-14 20:41] LABS: Glucose, Whole Blood 110 mg/dL (60-115)
[2024-06-15] VITALS: BP 121/51; PULSE 74; RESP 16; TEMP 36.3; O2SAT 95
[2024-06-15 04:00] VITALS: BP 164/77; PULSE 78; RESP 18; TEMP 36.3; O2SAT 95
[2024-06-15 07:48] VITALS: BP 153/66; PULSE 78; RESP 16; TEMP 36.2; O2SAT 94
[2024-06-15 08:17] LABS: Glucose, Whole Blood 117 mg/dL (60-115)
[2024-06-15 08:18] VITALS: PULSE 110; RESP 26; O2SAT 90
[2024-06-15] MEDS: Fluticasone Propionate 250 MCG BLST.W.DEV 1 PUFF INHALE (08:18)
[2024-06-15] MEDS: Atorvastatin Calcium 80 MG TABLET PO (08:19)
[2024-06-15] MEDS: NIFEdipine ER 60 MG TAB.ER.24 PO (08:19)
[2024-06-15] MEDS: buPROPion HCl XL 150 MG TAB.ER.24H 300 MG PO (08:19)
[2024-06-15] MEDS: Multivitamin TABLET 1 TAB PO (08:19)
[2024-06-15] MEDS: Aspirin 81 MG TAB.CHEW PO (08:19)
[2024-06-15] MEDS: Losartan Potassium 50 MG TABLET 100 MG PO (08:19)
[2024-06-15] MEDS: Clopidogrel Bisulfate 75 MG TABLET PO (08:19)
[2024-06-15] MEDS: 0.9 % Sodium Chloride Flush 3 ML SYRINGE IVFLUSH (08:20)
[2024-06-15] MEDS: Enoxaparin Sodium 40 MG/0.4 ML SYRINGE SUBCUT (08:20)
[2024-06-15 11:25] VITALS: BP 130/60; PULSE 79; RESP 18; TEMP 36.2; O2SAT 96
[2024-06-15 11:53] LABS: Glucose, Whole Blood 111 mg/dL (60-115)
--- NOTE | 2024-06-15 12:06 | P.DS_ITS ---
DS: Providers Provider Date of Service: 06/15/24 Date of admission: 06/12/24 09:18 Date of discharge: 06/15/24 Primary care physician: Marie Rossi NP Consults: 06/12/24 09:14 Consult to Neurology Routine Consulting Provider: [facility] Reason for consultation: suspected stroke DS: Diagnosis Discharge Diagnosis (1) Stroke: Status: Acute DS: Summary Hospital Course Hospital Course: 63 yo F with a PMH of DM, HTN, CORNELIA recently started on CPAP, HLD, likely obesity hypoventilation syndrome, chronic resp failure on hypoxia on supplemental O2 who presents to [facility] ED with acute neurological complaints. The history is obtained with the help of patient's daughters who are beside. Apparently, the patient first complained of L arm heaviness on Wednesday (2 days prior to admission) but felt this was secondary to sleeping on arm. This apparently subsided, but the next day returned. Per daughter, on the morning of admission, around 230AM, the pt complained of similar symptoms and at the time there was abnormal speech and drooping of the face reproted. In the ED, the patient was felt to be outside the TNK window. A CTA head/neck did not revealed any LVO. She was given aspirin and now admission has been requested. Hospital Course Patient admitted to telemetry and monitor failed to demonstrate any acute dysrhythmias. 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 Recommendations for dual antiplatelet therapies with Plavix and aspirin for 3 months and follow up. Patient statin was changed to high dose Lipitor. On the day of discharge his symptoms have resolved and she is medically acceptable for discharge. Patient will require hospital bed and bariatric commode given BMI; hospital bed we will help facilitate appropriate function of CPAP machine Time Attestation Discharge Coordination Time (in mins): 35 Quality: Safe Use of Opioids Does Pt have an Active Cancer Diagnosis on the Problem List?: No Quality: Stroke Does the patient have a stroke diagnosis?: Yes Reason for No Anti-thrombotic at DC: N/A - Med Ordered Reason for No Anticoagulant at DC: Not indicated Reason Not Initiating IV-Tpa: Not indicated Reason for No Anti-thrombotic by Day Two: Not indicated Reason for No Statin at DC: N/A - Med Ordered Physical Exam Vital Signs: Vital Signs: Last Vital Signs Temp 97.2 F 06/15/24 11:25 Pulse 79 06/15/24 11:25 Resp 18 06/15/24 11:25 BP 130/60 06/15/24 11:25 Pulse Ox 96 06/15/24 11:25 O2 Del Method Room Air 06/15/24 11:25 O2 Flow Rate 2 06/13/24 15:30 Oxygen Flow Rate 2 06/12/24 03:38 BMI result Body Mass Index 74.2 Const: Other: Awake alert no acute issues Resp: Other: Clear but diminished at bases Cardio: Other: No S4; positive S1-S2; no S3 murmurs rubs or gallops GI: Other: Obese; positive bowel sounds Extrem: Other: Positive edema bilaterally DS: Data Data Completed and Pending Labs on day of discharge: Laboratory Results - last 24 hr 06/14/24 06/14/24 06/15/24 16:02 20:14 07:53 POC Glucose 108 110 117 H 06/15/24 11:24 POC Glucose 111 Discharge Plan Discharge Anticipated Discharge Date/Time: 06/15/24 12:00 Patient Disposition: Home Health Service Discharge Diagnosis: Subacute right posterior limb infarct Referrals: Marie Rossi NP [Primary Care Provider] - 1 Week Discharge Medications: New atorvastatin 80 mg Tablet 80 mg PO DAILY Qty: 30 0RF clopidogrel 75 mg Tablet 75 mg PO DAILY Qty: 30 0RF Continued metformin 500 mg tablet 500 mg PO DAILY bupropion HCl 150 mg tablet sustained-release 12 hr 150 mg PO BID lovastatin 40 mg tablet 40 mg PO BEDTIME triamterene-hydrochlorothiazid 37.5-25 mg tablet 1 tab PO DAILY albuterol sulfate [Ventolin HFA] 90 mcg/actuation HFA aerosol inhaler 2 puff INHALATION QID PRN (Reason: Wheezing) nifedipine 60 mg tablet extended release 60 mg PO DAILY losartan 100 mg tablet 100 mg PO DAILY escitalopram oxalate 10 mg tablet 10 mg PO BEDTIME multivitamin Tablet 1 tab PO DAILY aspirin 81 mg Tablet,Chewable 81 mg PO DAILY fluticasone propionate 220 mcg/actuation Hfa Aerosol Inhaler 1 puff INHALATION BID Ozempic 2 mg/dose (8 mg/3 mL) Pen Injector 2 mg SUBCUT QWEEK Discharge Orders: Discharge Order (Routine); Ordered 06/15/24 Ordered By: Dg Weaver Diet: Advance to usual diet Activity on Discharge: As tolerated Stand Alone Forms: Patient Portal Discharge page Print Language: Romanian Care Plan Goals: Resume all medical therapies as taken prior to hospitalization Health Concerns: Plavix 75 mg daily has been added to your regimen along with your aspirin. You need to continue this for 3 months and then follow up with Neurology Plan of Treatment: Resume all services as prior to hospitalization Assessment: See discharge summary
[2024-06-15 12:19] VITALS: BMI 71.1
[2024-06-15 13:59] VITALS: BP 130/60; PULSE 79; O2SAT 96
== END 2024-06-15 16:00 | disposition home health service (06) | DRG 45 ==
LOC: HO.ED 06:55 → HO.EDOVER 09:19 → HO.IMC 14:56
PROVIDERS: Student in an Organized Health Care Education/Training Program; Admitting Provider Family Medicine; Emergency Provider Emergency Medicine; PCP Nurse Practitioner Adult Health; Visit Provider Hospitalist
DX: I63.30 Cerebral infarction due to thrombosis of unspecified cerebral artery (principal); J96.11 Chronic respiratory failure with hypoxia; G81.94 Hemiplegia, unspecified affecting left nondominant side; R29.700 NIHSS score 0; E11.9 Type 2 diabetes mellitus without complications; E78.5 Hyperlipidemia, unspecified; Z99.81 Dependence on supplemental oxygen; I10 Essential (primary) hypertension; G47.33 Obstructive sleep apnea (adult) (pediatric); R20.0 Anesthesia of skin; E66.01 Morbid (severe) obesity due to excess calories; Z68.45 Body mass index [BMI] 70 or greater, adult; Z79.82 Long term (current) use of aspirin; Z79.84 Long term (current) use of oral hypoglycemic drugs; Z79.899 Other long term (current) drug therapy
CPT/HCPCS: 36415; 70496; 70498; 80048; 80053; 80061; 80076; 81001; 82803; 82947; 83036; 83735; 84484; 85025; 85027; 85610; 87086; 93005; 94640; 97110; 97116; 97162; 97166; 97530; 97535; 99285; J1650; J2060; Q9967

== ENCOUNTER → 2024-06-12 03:52 | Outpatient (BNV) | payer MEDICAID, SELFPAY | PROVIDERS: Emergency Provider Emergency Medicine; PCP Nurse Practitioner Adult Health; Visit Provider Specialist | DX: R29.810 Facial weakness (principal); R20.2 Paresthesia of skin | CPT/HCPCS: 70496; 70498 ==

== ENCOUNTER → 2024-06-12 03:54 | Outpatient (BNV) | payer MEDICAID, SELFPAY | PROVIDERS: Admitting Provider Family Medicine; Emergency Provider Emergency Medicine; PCP Nurse Practitioner Adult Health; Visit Provider Internal Medicine Cardiovascular Disease | DX: I63.9 Cerebral infarction, unspecified (principal) | CPT/HCPCS: 93010 ==

== ENCOUNTER → 2024-06-12 09:18 | Outpatient (BNV) | payer MEDICAID, SELFPAY | PROVIDERS: Admitting Provider Family Medicine; Emergency Provider Emergency Medicine; PCP Nurse Practitioner Adult Health; Visit Provider Psychiatry & Neurology Neurology | DX: I63.30 Cerebral infarction due to thrombosis of unspecified cerebral artery (principal) | CPT/HCPCS: 99222 ==

== ENCOUNTER → 2024-06-12 09:18 | Outpatient (BNV) | payer MEDICAID, SELFPAY | PROVIDERS: Admitting Provider Family Medicine; Emergency Provider Emergency Medicine; PCP Nurse Practitioner Adult Health; Visit Provider Family Medicine | DX: I63.30 Cerebral infarction due to thrombosis of unspecified cerebral artery (principal) | CPT/HCPCS: 99233; 99239 ==